=== PATIENT | female | born 1950 | race Caucasian/White ===

== ENCOUNTER → 2019-10-04 | Emergency (ER) | payer OTHER ==
[~2019-10-04] VITALS: Ht 152.4 cm; Wt 49.9 kg
[~2019-10-04] MED LIST: LEVO-T75 MCG; ZESTRIL2.5 MG
== END | disposition left against medical advice (07) ==
LOC: ER 17:08
DX: Z53.20 Procedure and treatment not carried out because of patient's decision for unspecified reasons (principal)